=== PATIENT | female | born 1960 | race Caucasian/White ===

== ENCOUNTER 2016-12-03 11:45 | Day surgery (SDC) | payer OTHER ==
[~2016-12-03] VITALS: Ht 157.5 cm; Wt 56.7 kg
[~2016-12-03 11:45] MED LIST: 0.9% Sodium Chloride 1,000 ML IV SCH; CHOL100043 PO; Sodium Chloride LOK Flush 10 mL Syringe IV PRN; fentaNYL-PF 50 mCg/mL 2 mL Inj IVPUSH PRN
[2016-12-03 12:05] VITALS: BP 103/61; PULSE 66; RESP 14; O2SAT 100
[2016-12-03] MEDS: 0.9% Sodium Chloride 1,000 ML IV SCH ×2 (12:31→13:01)
[2016-12-03 13:11] VITALS: BP 102/66; PULSE 72; RESP 16; O2SAT 100
[2016-12-03 13:21] VITALS: BP 104/64; PULSE 69; RESP 16; O2SAT 100
[2016-12-03 13:31] VITALS: BP 102/65; PULSE 60; RESP 16; O2SAT 100
--- NOTE | 2016-12-03 13:32 | ENDO ---
[address] [address] ENDOSCOPY PROCEDURE PATIENT: ERICKSON MENDEZ : 1960 MR#: [id number] ADMIT: 12/03/2016 JOB ID: [id number] DATE: 12/03/2016 PROCEDURE: Colonoscopy. INDICATIONS: Screening. Patient's ASA classification is I. Mallampati score was I. MEDICATIONS: Versed 7 mg, fentanyl 150 mcg. INSTRUMENT USED: PCF-H180AL. PREP QUALITY: Fair. PROCEDURE DETAILS: After informed consent was obtained, the patient was brought to the GI suite, where she was placed on oxygen via nasal cannula and monitored with continuous pulse oximeter, telemetry, and blood pressure monitoring. A time-out was performed. Then, she was placed in a left lateral decubitus position and medications were administered for sedation. Digital rectal exam was performed, which was unremarkable. The colonoscope was then inserted into the rectum and advanced under direct visualization to the cecum, which was identified by the presence of the ileocecal valve and appendiceal orifice. Once the cecum was reached, the colonoscope was withdrawn back in the rectum as the mucosa and lumen were examined. In the rectum, retroflexion was performed. Following retroflexion, remaining air in the rectum was suctioned, and procedure was completed. FINDINGS: 1. In the cecum, there was an approximately 1 cm flat polyp. Appearance of the polyp was consistent with a serrated polyp. Polyp was lifted using normal saline and then removed with a hot snare. Following removal, there was mild oozing of blood at the polypectomy site. Therefore, two hemoclips were placed for mucosal approximation. Following the hemoclip placement, there was no further bleeding seen. The polyp was then grasped with a Baldwin net and then removed. The colonoscope was then inserted back into the rectum and advanced under direct visualization to the cecum. From the cecum, the colonoscope was then withdrawn back as the mucosa and lumen were examined. In the rectum, retroflexion was performed. Following retroflexion, remaining air in the rectum was suctioned, and procedure was completed. FINDINGS: Cecal polyp. RECOMMENDATIONS: 1. Avoid NSAIDs and anticoagulants for 72 hours. 2. Repeat colonoscopy in three years. COMPLICATIONS: None. ESTIMATED BLOOD LOSS: Less than 5 mL.
--- NOTE | 2016-12-06 15:15 | PATH ---
SURGICAL PATHOLOGY Attending Physician:Johanne Cohn CASE STATUS: Signed Out PATIENT NAME: ERICKSON MENDEZ PID: [id number] : 1960 DATE COLLECTED:12/03/2016 19:52 SPECIMEN: Colon, Polyp CLINICAL HISTORY: SCREENING FAMILY HISTORY COLON POLYPS 1). 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 Ink code: black-resection margin. Section code: (A) polyp, trisected. Specimen entirely submitted. 12/05/16 JM MICRO DESCRIPTION: See diagnosis. ICD-9 CODES: CPT CODES: 1: 99422 Electronically Signed Out Kwame Knight MD [facility] [address], [place] [address] Technical component performed at [facility], [facility] [address], [address]
== END 2016-12-03 23:59 | disposition home or self-care (01) ==
LOC: END 11:45
PROVIDERS: ATTEND Internal Medicine Gastroenterology
DX: Z12.11 Encounter for screening for malignant neoplasm of colon (principal); D12.0 Benign neoplasm of cecum
CPT/HCPCS: 45381; 45385; 99153; G0500; J2250; J3010; J7030